=== PATIENT | female | born 1950 | race Caucasian/White ===

== ENCOUNTER 2016-12-30 08:03 | Day surgery (SDC) | payer BC, OTHER ==
[~2016-12-30 08:03] MED LIST: RINGERS SOLUTION,LACTATED 1,000 ML IV PRN; ceFAZolin SODIUM 1 GM VIAL IV PRN
[2016-12-30] MEDS ORDERED: RINGERS SOLUTION,LACTATED 1,000 ML IV ONE (08:34)
--- NOTE | 2016-12-30 11:53 | OR ---
Anesthesia Procedure Note - Anesthesia Procedure Note Date of Service: 12/30/16 Narrative: Vital Signs - Last Taken Temp 36.4 C L 12/30/16 11:00 Pulse 72 12/30/16 11:45 Resp 16 12/30/16 11:45 BP 111/72 12/30/16 11:45 Pulse Ox 98 12/30/16 11:45 O2 Oxygen Delivery Method Room Air 12/30/16 11:51 ANESTHESIA PROCEDURE NOTE Date of Procedure: 12/30/2016 Time of procedure: 8:55 AM. Performed by: TIBURCIO Brooks CRNA, MSN Business Systems Administrator: Linda Nava RN. Preprocedure diagnosis: Post right thumb arthroplasty pain relief. Post procedure diagnosis: Same. Procedure: Right Axillary nerve block. Indications: Post right thumb arthroplasty pain relief. Findings: See below. Details of the procedure: The patient was brought to OR #4 and placed in the supine position. After adequate sedation, the patient was prepped with chlorhexidine and using ultrasound guidance the right axillary artery, radial, ulnar and medial segments of the brachial plexus were identified and lidocaine 1 % was infiltrated to the skin of the intended injection site. Under ultrasound guidance the individual nerve bundles were approached until an arm response was identified on nerve stimulator. Once the stimulator response was effective at less than 0.5 mV and greater than 0.3 mV the femoral nerve was surrounded with 40 mL bupivacaine 0.5% with 1-200,000 epinephrine. An axillary ring was also injected with the same solution. Please see radiology/ultrasound report for details and images of the procedure. EBL: 0 Fluids: N/A. Specimen: N/A. Post procedure condition: The patient tolerated the procedure well. No complications were noted. Thank you for this consultation. Agusto Rivera CRNA, BROTHEL KEEPER, MSN
--- NOTE | 2016-12-30 11:59 | OR ---
Operative Report - Dictated Report Narrative: Date: 12/30/2016 Surgeon: Joe Don M.D. Supervisor Sewing Department: Jl Stacy PA-C Preoperative diagnosis: Right Thumb carpometacarpal arthrosis Postoperative diagnosis: Right Thumb carpometacarpal arthrosis Operation: Right Thumb resection suspension arthroplasty of the carpo- metacarpal joint Retained implants: 0.45 smooth Alejandro wire pin cap Anesthesia: General plus regional Tourniquet time: 67 Minutes at 250 mmHg Estimated blood loss: Minimal Drains: None Specimen: Bone for disposal Complications: None Indications: Mrs. Lundberg is a 66-year-old female who is seen in the clinic for complaints of right basilar thumb. That failed conservative measures including but not limited to injections, medications, splinting, activity modification, and or therapy. Radiographs revealed advanced arthrosis of the thumb carpometacarpal joint and they wish to proceed with surgical treatment. The risks, benefits, and alternatives were discussed in the clinic. The risks of , blood clots , bleeding, infection, damage to nerve, tendon, or blood vessels, stiffness, weakness, persistent pain, deformity, and need for additional procedures were reviewed. She wished to proceed with the procedure. Procedure: After marking the correct extremity in the preoperative holding area, the patient was taken to the operating room and timeout was performed. IV antibiotics consisting of Ancef were administered. A regional followed by general anesthetic was induced by anesthesia per my request. A well-padded tourniquet was applied to the upper arm. The surgical arm was then prepped and draped in a standard sterile fashion. After exsanguinating the extremity, the tourniquet was inflated to 250 mmHg. A longitudinal incision approximately 6 cm in length was made centered over the dorsal aspect of the thumb carpometacarpal joint. This was bluntly dissected down to the subcutaneous tissue protecting the dorsal branch of the radial nerve and any other cutaneous nerves and vessels encountered. A capsulotomy and periosteal elevation was performed between the extensor pollicis brevis and extensor pollicis longus. The base of the thumb metacarpal as well as the trapezium were exposed and the soft tissues and capsule were elevated off this. Utilizing a oscillating saw, approximately 5 mm of the base of the thumb metacarpal was removed including the arthritic joint surface with the marginal osteophytes. The trapezium was then quartered and excised using a combination of ronguer and [place] blade. Care was taken to protect the deep flexor carpi radialis tendon. Once the trapezium was fully excised the flexor carpi radialis tendon was dissected down to its insertion on the index metacarpal and tagged with an umbilical tape. Attention was then turned to the procurement of the flexor carpal radialis tendon over the volar forearm. 2 small transverse incisions were made at the distal and musculotendinous portions of the flexor carpi radialis tendon. Blunt dissection was carried through subcutaneous tissue down to the flexor tendon. The flexor carpal radius tendon was tagged distally and then transected at the muscle tendinous junction proximally and mobilized into the thumb wound. The muscle attached to the tendon was then removed using a scalpel. The tendon was wrapped in a moist Ray-Parisa sponge. A bur was utilized in order to make a tunnel through the base of the thumb metacarpal approximately a centimeter distal exiting over the volar and ulnar aspect of the thumb metacarpal in line with the thumb nail. This was enlarged to accommodate the tendon and the bony edges were burred to make this a smooth return of the tendon on itself. The tendon was then passed through the tunnel without any complications. A 0.45 smooth Alejandro wire was placed through the thumb metacarpal into the index metacarpal using mini C-arm to confirm placement of the thumb in a pinch biochemistry specialist position suspended at the level of the index metacarpal. 4-0 Ethibond suture was placed deep in the capsule in order to stabilize the tendon graft. 4-0 Ethibond was utilized in order to repair the tendon back to itself as well as to the periosteum as it exited the tunnel. The tendon was then rolled into an anchovy orientation and secured with 4-0 Ethibond suture. 2 Isaac needles were placed in order to pass the previously placed 4-0 Ethibond which was deep in the resected trapezium area and passed through the tendon in order to secure the tendon into the base of the wound. This allowed for filling of the defect from the prior removed trapezium. The wounds were then thoroughly irrigated. Tourniquet was deflated and hemostasis was obtained with bipolar cautery. 4-0 nylon was used to close the tendon procurement site. 4-0 Vicryl was utilized in order to repair the joint capsule and periosteum onto the tendon graft. Subcutaneous 4-0 Vicryl and 4-0 nylon on the skin were utilized in order to close the thumb wound. The K wire was bent and capped outside the skin. Xeroform, 4 x 4's, soft roll, and a well-padded thumb spica splint were applied and the patient was awoken and transferred to postanesthesia care unit in stable condition. All sponge, needle, sharp, and instrument counts were correct prior to closing the wounds.
[2016-12-30 12:04] VITALS: BP 120/70
== END 2016-12-30 08:04 | disposition home or self-care (01) ==
LOC: AMB 08:03
PROVIDERS: ATTEND Orthopaedic Surgery
PROC: 0LB50ZZ Excision of Right Lower Arm and Wrist Tendon, Open Approach (ICD-10-PCS; 2016-12-30)
PROC: 3E0T3BZ Introduction of Anesthetic Agent into Peripheral Nerves and Plexi, Percutaneous Approach (ICD-10-PCS; 2016-12-30)
PROC: 0RUS07Z Supplement Right Carpometacarpal Joint with Autologous Tissue Substitute, Open Approach (ICD-10-PCS; principal; 2016-12-30 09:45)
DX: M18.11 Unilateral primary osteoarthritis of first carpometacarpal joint, right hand (principal); E78.00 Pure hypercholesterolemia, unspecified; D64.9 Anemia, unspecified; K58.9 Irritable bowel syndrome, unspecified; Z87.891 Personal history of nicotine dependence; Z68.24 Body mass index [BMI] 24.0-24.9, adult